=== PATIENT | male | born 1940 | race Caucasian/White ===

== ENCOUNTER 2018-09-05 19:06 | Inpatient (IN) ==
[2018-09-05] MEDS ORDERED: DIPH/TET/ACEL PERT BOOSTER VACCINE 0.5 ML VIAL IM ONE (19:18)
[2018-09-05] MEDS ORDERED: HYDROmorphone 2 MG/1 ML VIAL IV STA (19:18)
[2018-09-05] MEDS ORDERED: LACTATED RINGERS 500 ML IV STA (19:18)
[2018-09-05] MEDS ORDERED: ONDANSETRON 4 MG/2 ML VIAL IV STA (19:18)
[2018-09-05] MEDS ORDERED: HYDROmorphone 2 MG/1 ML VIAL IV ONE (20:25)
[2018-09-05 20:28] LABS: Basophils % 0.7 % (0.0-0.8); Eosinophils # 0.2 10*3/uL (0.0-0.87); Eosinophils % 3.9 % (0.00-10.9); Hematocrit 40.1 VOL% (42.0-52.0); Immature Granulocytes % 0.7 %; Immature Granulocytes Absolute 0.04 #; Lymphocytes # 0.9 10*3/uL (1.4-4.0); Lymphocytes % 16.3 % (21.2-54.2); Mean Corpuscular HGB Conc 32.4 GM/DL (32-36); Mean Platelet Volume 9.8 FL (9.6-12.0); Monocytes % 9.1 % (1.7-12.7); Neutrophils % 69.3 % (38.7-73.9); Platelet Count 126 T/CUMM (130-400); Red Blood Count 4.22 MC/CUMM (3.8-5.5); Red Cell Distribution Width 12.7 % (9.3-17.3); White Blood Count 5.7 T/CUMM (4-12)
[2018-09-05 20:48] LABS: Troponin I < 0.015 NG/ML (0.00-0.045)
[2018-09-05 20:50] LABS: Albumin 3.3 G/DL (3.4-5.0); Bilirubin,Total 0.4 MG/DL (0.2-1.0); Calcium 8.5 MG/DL (8.5-10.1); Osmolality,Calculated 280.4 MOS/KG (273-304)
[2018-09-05 21:50] LABS: Apearance,Urine CLEAR (Clear); Bilirubin,Urine Negative (Negative); Blood, Urine Moderate mg/dL (Negative); Glucose,Urine (UA) Negative (Negative); Ketones,Urine Negative (Negative); Mucus,Urine Occasional /LPF (Occasional); Nitrite,Urine Negative (Negative); Protein,Urine Negative; RBC,Urine 4 /HPF (0-4); Squamous Epithelial Cell,Urine Occasional /HPF (0-10); Urine Color Yellow (Yellow); Urine Specific Gravity 1.047 (1.001-1.035); Urine Urobilinogen < 2.0 EU/DL (0.2-1.0); WBC,Urine 2 /HPF (0-6)
[2018-09-05 21:54] LABS: Barbiturates Screen,Urine Negative (Negative); Benzodiazepines Screen,Urine Negative (Negative); Cannabinoid Screen,Urine Negative (Negative); Opiate Screen,Urine Positive (Negative); Phencyclidine Screen,Urine Negative (Negative)
[2018-09-05] MEDS ORDERED: ACETAMINOPHEN 325 MG TABLET PO PRN (23:16)
[2018-09-05] MEDS ORDERED: ONDANSETRON 4 MG/2 ML VIAL IV PRN (23:16)
[2018-09-05] MEDS: SODIUM CHLORIDE 0.9% 1,000 ML IV SCH (23:38)
[2018-09-06 00:14] LABS: Troponin I < 0.015 NG/ML (0.00-0.045)
[2018-09-06] MEDS: ALBUTEROL/IPRATROPIUM 3 ML NEB RESP TX SCH ×6 (00:33→21:40)
[2018-09-06] MEDS: HYDROmorphone 2 MG/1 ML VIAL IV PRN ×3 (00:52→12:44)
[2018-09-06] MEDS: ceFAZolin 1,000 MG in SYRINGE 1 EACH IV SCH ×3 (05:05→21:46)
[2018-09-06 05:12] LABS: Basophils % 0.3 % (0.0-0.8); Eosinophils % 0.3 % (0.00-10.9); Hematocrit 40.9 VOL% (42.0-52.0); Hemoglobin 12.9 GM/DL (14.0-18.0); Immature Granulocytes % 0.3 %; Immature Granulocytes Absolute 0.02 #; Lymphocytes # 0.4 10*3/uL (1.4-4.0); Lymphocytes % 5.6 % (21.2-54.2); Mean Corpuscular HGB Conc 31.5 GM/DL (32-36); Mean Corpuscular Volume 97.8 FL (87-102); Mean Platelet Volume 10.1 FL (9.6-12.0); Monocytes % 7.7 % (1.7-12.7); Neutrophils % 85.8 % (38.7-73.9); Platelet Count 116 T/CUMM (130-400); Red Blood Count 4.18 MC/CUMM (3.8-5.5); White Blood Count 7.5 T/CUMM (4-12)
[2018-09-06 05:36] LABS: Albumin 3.6 G/DL (3.4-5.0); Bilirubin,Total 0.8 MG/DL (0.2-1.0); Calcium 8.6 MG/DL (8.5-10.1); Osmolality,Calculated 288.1 MOS/KG (273-304); Total Protein 6.3 G/DL (6.4-8.3)
[2018-09-06] MEDS ORDERED: ALBUTEROL 2.5 MG/3 ML NEB RESP TX PRN (07:30)
[2018-09-06] MEDS ORDERED: fentaNYL 25 MCG/HR PATCH TRANSDERM SCH (09:00)
[2018-09-06] MEDS ORDERED: GABAPENTIN 300 MG CAPSULE PO SCH (09:00)
[2018-09-06] MEDS ORDERED: VALSARTAN/HCTZ 80-12.5 MG TABLET PO SCH (09:00)
[2018-09-06] MEDS: LEVOTHYROXINE 112 MCG TABLET PO SCH (10:02)
[2018-09-06] MEDS: ONDANSETRON ODT 4 MG TABLET PO SCH ×3 (10:02→18:28)
[2018-09-06] MEDS: PANTOPRAZOLE 40 MG TABLET PO SCH (10:03)
[2018-09-06] MEDS: POLYETHYLENE GLYCOL POWDER 17 GM PACK PO SCH (10:06)
[2018-09-06] MEDS: IPRATROPIUM 500 MCG/2.5 ML NEB RESP TX SCH ×2 (10:33→15:17)
[2018-09-06] MEDS: BACITRACIN OINT 0.9 GM PACK TOP SCH (12:46)
[2018-09-06] MEDS: SODIUM CHLORIDE 0.9% 1,000 ML IV SCH (12:47)
[2018-09-06] MEDS ORDERED: NALOXONE 0.4 MG/ML VIAL ONE (16:08)
[2018-09-06] MEDS: NALOXONE 0.4 MG/ML VIAL IV PRN ×2 (16:19→16:29)
[2018-09-06 16:42] LABS: ABG Base Excess 0.1 MMOL/L (-2.5-2.5); ABG HCO3 24.5 MMOL/L (20-26); ABG Oxygen Saturation 94.1 % (95-100); ABG PCO2 65.7 MM HG (35-48); ABG PH 7.256 (7.35-7.45); ABG PO2 72.8 MM HG (80-95); ABG TCO2 26.3 MMOL/L (23-27)
[2018-09-06 18:48] LABS: ABG HCO3 24.9 MMOL/L (20-26); ABG Oxygen Saturation 77.9 % (95-100); ABG PCO2 80.3 MM HG (35-48); ABG PO2 46.3 MM HG (80-95); ABG TCO2 29.2 MMOL/L (23-27)
[2018-09-06 18:50] LABS: ABG PH 7.208 (7.35-7.45)
[2018-09-06] MEDS ORDERED: traZODone 50 MG TABLET PO SCH (21:00)
[2018-09-06 21:44] LABS: Allen Test Positive; Pt O2 Delivery Device BIPAP
[2018-09-06 21:45] LABS: ABG Base Excess 1.3 MMOL/L (-2.5-2.5); ABG HCO3 25.4 MMOL/L (20-26); ABG Oxygen Saturation 93.7 % (95-100); ABG PH 7.242 (7.35-7.45); ABG PO2 73.7 MM HG (80-95); ABG TCO2 28.1 MMOL/L (23-27)
[2018-09-06] MEDS: ATORVASTATIN 40 MG TABLET PO SCH (21:46)
[2018-09-06 21:47] LABS: ABG PCO2 72.1 MM HG (35-48)
[2018-09-07] MEDS: ALBUTEROL/IPRATROPIUM 3 ML NEB RESP TX SCH ×7 (00:17→22:52)
[2018-09-07] MEDS: ONDANSETRON ODT 4 MG TABLET PO SCH ×4 (01:19→21:47)
[2018-09-07 03:16] LABS: ABG Base Excess 0.6 MMOL/L (-2.5-2.5); ABG HCO3 24.9 MMOL/L (20-26); ABG PH 7.219 (7.35-7.45); ABG PO2 86.6 MM HG (80-95); ABG TCO2 28.2 MMOL/L (23-27); Allen Test Positive; Pt O2 Delivery Device BIPAP
[2018-09-07 03:56] LABS: ABG PCO2 75.7 MM HG (35-48)
[2018-09-07 04:02] LABS: Basophils % 0.2 % (0.0-0.8); Eosinophils # 0.1 10*3/uL (0.0-0.87); Eosinophils % 0.8 % (0.00-10.9); Hematocrit 37.6 VOL% (42.0-52.0); Hemoglobin 11.3 GM/DL (14.0-18.0); Immature Granulocytes % 0.3 %; Immature Granulocytes Absolute 0.02 #; Lymphocytes # 0.6 10*3/uL (1.4-4.0); Mean Corpuscular HGB Conc 30.1 GM/DL (32-36); Mean Corpuscular Volume 102.7 FL (87-102); Mean Platelet Volume 10.3 FL (9.6-12.0); Monocytes % 13.3 % (1.7-12.7); Neutrophils % 75.4 % (38.7-73.9); Platelet Count 104 T/CUMM (130-400); Red Blood Count 3.66 MC/CUMM (3.8-5.5); Red Cell Distribution Width 13.5 % (9.3-17.3); White Blood Count 6.3 T/CUMM (4-12)
[2018-09-07 04:30] LABS: Albumin 3.4 G/DL (3.4-5.0); Bilirubin,Total 0.5 MG/DL (0.2-1.0); Osmolality,Calculated 285.4 MOS/KG (273-304); Total Protein 6.7 G/DL (6.4-8.3)
[2018-09-07 04:34] LABS: Hypochromasia 1+; Platelet Estimate Normal
[2018-09-07] MEDS: SODIUM CHLORIDE 0.9% 1,000 ML IV SCH ×2 (04:51→13:53)
[2018-09-07] MEDS: ceFAZolin 1,000 MG in SYRINGE 1 EACH IV SCH ×3 (05:09→21:47)
[2018-09-07] MEDS ORDERED: LACTATED RINGERS 1,000 ML IV ONE (06:55)
[2018-09-07] MEDS ORDERED: LORazepam 1 MG TABLET PO PRN (08:31)
[2018-09-07] MEDS: THIAMINE 100 MG TABLET PO SCH (09:07)
[2018-09-07] MEDS: PANTOPRAZOLE 40 MG TABLET PO SCH (09:08)
[2018-09-07] MEDS: BACITRACIN OINT 0.9 GM PACK TOP SCH (09:10)
[2018-09-07] MEDS: POLYETHYLENE GLYCOL POWDER 17 GM PACK PO SCH (09:10)
[2018-09-07] MEDS: LEVOTHYROXINE 112 MCG TABLET PO SCH (09:10)
[2018-09-07] MEDS: MULTIVITAMIN (CENTRUM) TABLET PO SCH (09:10)
[2018-09-07] MEDS: FOLIC ACID 1 MG TABLET PO SCH (09:10)
[2018-09-07] MEDS: methylPREDNISolone SOD SUC 40 MG/1 ML VIAL IV SCH ×2 (10:38→17:18)
[2018-09-07 14:30] LABS: Calcium 7.8 MG/DL (8.5-10.1); Osmolality,Calculated 287.5 MOS/KG (273-304)
[2018-09-07] MEDS: ATORVASTATIN 40 MG TABLET PO SCH (21:47)
[2018-09-08] MEDS: ONDANSETRON ODT 4 MG TABLET PO SCH ×4 (01:10→20:09)
[2018-09-08] MEDS: SODIUM CHLORIDE 0.9% 1,000 ML IV SCH ×2 (01:11→21:42)
[2018-09-08] MEDS: ALBUTEROL/IPRATROPIUM 3 ML NEB RESP TX SCH ×6 (02:42→23:30)
[2018-09-08] MEDS: methylPREDNISolone SOD SUC 40 MG/1 ML VIAL IV SCH ×3 (02:51→17:27)
[2018-09-08 03:32] LABS: ABG Base Excess 1.4 MMOL/L (-2.5-2.5); ABG HCO3 25.6 MMOL/L (20-26); ABG Oxygen Saturation 96.3 % (95-100); ABG PCO2 62.2 MM HG (35-48); ABG PH 7.287 (7.35-7.45); ABG PO2 83.7 MM HG (80-95); ABG TCO2 26.8 MMOL/L (23-27); Allen Test Positive; Pt O2 Delivery Device BIPAP
[2018-09-08] MEDS: ceFAZolin 1,000 MG in SYRINGE 1 EACH IV SCH ×3 (05:10→20:10)
[2018-09-08 06:16] LABS: Hematocrit 34.5 VOL% (42.0-52.0); Hemoglobin 11.2 GM/DL (14.0-18.0); Immature Granulocytes % 0.7 %; Immature Granulocytes Absolute 0.04 #; Lymphocytes # 0.3 10*3/uL (1.4-4.0); Lymphocytes % 4.7 % (21.2-54.2); Mean Corpuscular HGB Conc 32.5 GM/DL (32-36); Mean Corpuscular Volume 96.6 FL (87-102); Mean Platelet Volume 9.7 FL (9.6-12.0); Monocytes % 3.9 % (1.7-12.7); Neutrophils % 90.7 % (38.7-73.9); Platelet Count 94 T/CUMM (130-400); Red Blood Count 3.57 MC/CUMM (3.8-5.5); Red Cell Distribution Width 12.7 % (9.3-17.3); White Blood Count 5.4 T/CUMM (4-12)
[2018-09-08 06:36] LABS: Hypochromasia 1+; Lymphocytes 4 % (20-55); Platelet Estimate Decreased; Segmented Neutrophils 93 % (50-85); Total Cells Counted 100
[2018-09-08 06:57] LABS: Calcium 8.1 MG/DL (8.5-10.1); Osmolality,Calculated 286.5 MOS/KG (273-304)
[2018-09-08] MEDS: THIAMINE 100 MG TABLET PO SCH (08:07)
[2018-09-08] MEDS: FOLIC ACID 1 MG TABLET PO SCH (08:07)
[2018-09-08] MEDS: BACITRACIN OINT 0.9 GM PACK TOP SCH (08:07)
[2018-09-08] MEDS: LEVOTHYROXINE 112 MCG TABLET PO SCH (08:07)
[2018-09-08] MEDS: PANTOPRAZOLE 40 MG TABLET PO SCH (08:07)
[2018-09-08] MEDS: MULTIVITAMIN (CENTRUM) TABLET PO SCH (08:08)
[2018-09-08] MEDS: POLYETHYLENE GLYCOL POWDER 17 GM PACK PO SCH (08:08)
[2018-09-08] MEDS: amLODIPine 2.5 MG TABLET PO SCH (11:56)
[2018-09-08] MEDS: ENOXAPARIN 40 MG/0.4 ML SYRINGE SUBCUT SCH (20:10)
[2018-09-08] MEDS: ATORVASTATIN 40 MG TABLET PO SCH (20:10)
[2018-09-09] MEDS: ONDANSETRON ODT 4 MG TABLET PO SCH ×4 (00:50→20:17)
[2018-09-09] MEDS: methylPREDNISolone SOD SUC 40 MG/1 ML VIAL IV SCH ×2 (01:35→12:03)
[2018-09-09] MEDS ORDERED: chlordiazePOXIDE 25 MG CAPSULE PO PRN (01:49)
[2018-09-09] MEDS: ALBUTEROL/IPRATROPIUM 3 ML NEB RESP TX SCH ×6 (02:30→23:20)
[2018-09-09] MEDS ORDERED: LABETALOL 20 MG/4 ML SYRINGE IV ONE (03:35)
[2018-09-09] MEDS: ceFAZolin 1,000 MG in SYRINGE 1 EACH IV SCH ×3 (04:01→20:14)
[2018-09-09] MEDS: MULTIVITAMIN (CENTRUM) TABLET PO SCH (08:37)
[2018-09-09] MEDS: FOLIC ACID 1 MG TABLET PO SCH (08:37)
[2018-09-09] MEDS: BACITRACIN OINT 0.9 GM PACK TOP SCH (08:37)
[2018-09-09] MEDS: POLYETHYLENE GLYCOL POWDER 17 GM PACK PO SCH (08:37)
[2018-09-09] MEDS: amLODIPine 2.5 MG TABLET PO SCH (08:37)
[2018-09-09] MEDS: LEVOTHYROXINE 112 MCG TABLET PO SCH (08:38)
[2018-09-09] MEDS: PANTOPRAZOLE 40 MG TABLET PO SCH (08:38)
[2018-09-09] MEDS: THIAMINE 100 MG TABLET PO SCH (08:38)
[2018-09-09] MEDS: IPRATROPIUM 500 MCG/2.5 ML NEB RESP TX SCH (08:46)
[2018-09-09] MEDS: LORazepam 2 MG/1 ML VIAL IV PRN (12:39)
[2018-09-09] MEDS ORDERED: DILTIAZEM 50 MG/10 ML VIAL IV ONE (13:22)
[2018-09-09] MEDS: chlordiazePOXIDE 10 MG CAPSULE PO SCH ×2 (14:51→20:26)
[2018-09-09] MEDS ORDERED: PROPRANOLOL 10 MG TABLET PO SCH (15:00)
[2018-09-09] MEDS ORDERED: PROPRANOLOL 10 MG TABLET PO ONE (15:23)
[2018-09-09] MEDS: ATORVASTATIN 40 MG TABLET PO SCH (20:16)
[2018-09-09] MEDS: PROPRANOLOL 10 MG TABLET PO SCH (20:16)
[2018-09-09] MEDS: ENOXAPARIN 40 MG/0.4 ML SYRINGE SUBCUT SCH (20:20)
[2018-09-10] MEDS ORDERED: hydrALAZINE 20 MG/1 ML VIAL IV ONE (00:30)
[2018-09-10] MEDS: ONDANSETRON ODT 4 MG TABLET PO SCH ×4 (00:36→20:30)
[2018-09-10] MEDS: LORazepam 2 MG/1 ML VIAL IV PRN (01:18)
[2018-09-10] MEDS: chlordiazePOXIDE 25 MG CAPSULE PO SCH ×2 (02:25→09:14)
[2018-09-10] MEDS ORDERED: LORazepam 2 MG/1 ML VIAL IV ONE ×2 (02:53→04:38)
[2018-09-10 02:55] LABS: Apearance,Urine CLEAR (Clear); Bilirubin,Urine Negative (Negative); Blood, Urine Large mg/dL (Negative); Glucose,Urine (UA) Negative (Negative); Hyaline Casts,Urine 3 /LPF (0-3); Ketones,Urine Negative (Negative); Mucus,Urine Occasional /LPF (Occasional); Nitrite,Urine Negative (Negative); Protein,Urine 30 MG/DL; RBC,Urine 491 /HPF (0-4); Squamous Epithelial Cell,Urine Few /HPF (0-10); Urine Color Yellow (Yellow); Urine Specific Gravity 1.026 (1.001-1.035); WBC,Urine 9 /HPF (0-6)
[2018-09-10] MEDS: ALBUTEROL/IPRATROPIUM 3 ML NEB RESP TX SCH ×6 (03:07→23:05)
[2018-09-10] MEDS: ceFAZolin 1,000 MG in SYRINGE 1 EACH IV SCH (04:24)
[2018-09-10] MEDS ORDERED: LORazepam 2 MG/1 ML VIAL ONE ×2 (04:40→06:45)
[2018-09-10] MEDS ORDERED: LORazepam 2 MG/1 ML VIAL IV PRN (04:43)
[2018-09-10 06:23] LABS: ABG HCO3 28.9 MMOL/L (20-26); ABG Oxygen Saturation 94.1 % (95-100); ABG PCO2 46.4 MM HG (35-48); ABG PH 7.423 (7.35-7.45); ABG PO2 69.5 MM HG (80-95); ABG TCO2 26.8 MMOL/L (23-27); Allen Test Positive
[2018-09-10 07:34] LABS: Hematocrit 35.7 VOL% (42.0-52.0); Hemoglobin 11.8 GM/DL (14.0-18.0); Immature Granulocytes % 0.6 %; Immature Granulocytes Absolute 0.05 #; Lymphocytes # 0.6 10*3/uL (1.4-4.0); Lymphocytes % 6.8 % (21.2-54.2); Mean Corpuscular HGB Conc 33.1 GM/DL (32-36); Mean Corpuscular Volume 95.2 FL (87-102); Mean Platelet Volume 9.8 FL (9.6-12.0); Monocytes % 9.2 % (1.7-12.7); Neutrophils % 83.4 % (38.7-73.9); Platelet Count 125 T/CUMM (130-400); Red Blood Count 3.75 MC/CUMM (3.8-5.5); Red Cell Distribution Width 13.1 % (9.3-17.3); White Blood Count 8.7 T/CUMM (4-12)
[2018-09-10 08:01] LABS: Osmolality,Calculated 289.4 MOS/KG (273-304)
[2018-09-10] MEDS ORDERED: chlordiazePOXIDE 10 MG CAPSULE PO SCH (12:00)
[2018-09-10] MEDS: LEVOTHYROXINE 112 MCG TABLET PO SCH (13:37)
[2018-09-10] MEDS: BACITRACIN OINT 0.9 GM PACK TOP SCH (13:37)
[2018-09-10] MEDS: POLYETHYLENE GLYCOL POWDER 17 GM PACK PO SCH (13:37)
[2018-09-10] MEDS: PROPRANOLOL 10 MG TABLET PO SCH ×3 (13:37→20:30)
[2018-09-10] MEDS: amLODIPine 2.5 MG TABLET PO SCH (17:22)
[2018-09-10] MEDS: MULTIVITAMIN (CENTRUM) TABLET PO SCH (17:22)
[2018-09-10] MEDS: FOLIC ACID 1 MG TABLET PO SCH (17:22)
[2018-09-10] MEDS: predniSONE 20 MG TABLET PO SCH (17:23)
[2018-09-10] MEDS: PANTOPRAZOLE 40 MG TABLET PO SCH (17:23)
[2018-09-10] MEDS: THIAMINE 100 MG TABLET PO SCH (17:23)
[2018-09-10] MEDS: ENOXAPARIN 40 MG/0.4 ML SYRINGE SUBCUT SCH (20:30)
[2018-09-10] MEDS: ATORVASTATIN 40 MG TABLET PO SCH (20:30)
[2018-09-10] MEDS: HALOPERIDOL 5 MG/ML AMP IM PRN (21:57)
[2018-09-11] MEDS: ONDANSETRON ODT 4 MG TABLET PO SCH ×4 (00:24→21:29)
[2018-09-11] MEDS: ALBUTEROL/IPRATROPIUM 3 ML NEB RESP TX SCH ×6 (03:15→22:39)
[2018-09-11 03:39] LABS: Eosinophils # 0.1 10*3/uL (0.0-0.87); Eosinophils % 1.5 % (0.00-10.9); Hematocrit 35.1 VOL% (42.0-52.0); Hemoglobin 11.3 GM/DL (14.0-18.0); Immature Granulocytes % 0.8 %; Immature Granulocytes Absolute 0.04 #; Lymphocytes # 0.5 10*3/uL (1.4-4.0); Lymphocytes % 10.3 % (21.2-54.2); Mean Corpuscular HGB Conc 32.2 GM/DL (32-36); Mean Corpuscular Volume 96.2 FL (87-102); Mean Platelet Volume 9.9 FL (9.6-12.0); Monocytes % 10.1 % (1.7-12.7); Neutrophils % 77.3 % (38.7-73.9); Platelet Count 122 T/CUMM (130-400); Red Blood Count 3.65 MC/CUMM (3.8-5.5); Red Cell Distribution Width 12.8 % (9.3-17.3); White Blood Count 5.2 T/CUMM (4-12)
[2018-09-11 03:59] LABS: Calcium 7.9 MG/DL (8.5-10.1); Osmolality,Calculated 288.3 MOS/KG (273-304)
[2018-09-11] MEDS: PROPRANOLOL 10 MG TABLET PO SCH (08:31)
[2018-09-11] MEDS: amLODIPine 2.5 MG TABLET PO SCH (08:51)
[2018-09-11] MEDS: LEVOTHYROXINE 112 MCG TABLET PO SCH (08:51)
[2018-09-11] MEDS: PANTOPRAZOLE 40 MG TABLET PO SCH (08:51)
[2018-09-11] MEDS: FOLIC ACID 1 MG TABLET PO SCH (08:51)
[2018-09-11] MEDS: POLYETHYLENE GLYCOL POWDER 17 GM PACK PO SCH (08:52)
[2018-09-11] MEDS: MULTIVITAMIN (CENTRUM) TABLET PO SCH (08:52)
[2018-09-11] MEDS: BACITRACIN OINT 0.9 GM PACK TOP SCH (08:52)
[2018-09-11] MEDS: THIAMINE 100 MG TABLET PO SCH (08:52)
[2018-09-11] MEDS: predniSONE 20 MG TABLET PO SCH (08:52)
[2018-09-11] MEDS: hydrALAZINE 20 MG/1 ML VIAL IV PRN (17:53)
[2018-09-11] MEDS: ATORVASTATIN 40 MG TABLET PO SCH (21:29)
[2018-09-11] MEDS: ENOXAPARIN 40 MG/0.4 ML SYRINGE SUBCUT SCH (21:33)
[2018-09-11] MEDS: HALOPERIDOL 5 MG/ML AMP IM PRN (23:18)
[2018-09-12] MEDS: HYDROmorphone 2 MG/1 ML VIAL IV PRN ×3 (01:27→12:01)
[2018-09-12] MEDS: ALBUTEROL/IPRATROPIUM 3 ML NEB RESP TX SCH ×3 (02:28→11:55)
[2018-09-12] MEDS: ONDANSETRON ODT 4 MG TABLET PO SCH ×2 (03:06→09:05)
[2018-09-12 04:36] LABS: Basophils % 0.2 % (0.0-0.8); Eosinophils # 0.1 10*3/uL (0.0-0.87); Eosinophils % 0.8 % (0.00-10.9); Hematocrit 36.3 VOL% (42.0-52.0); Hemoglobin 11.8 GM/DL (14.0-18.0); Immature Granulocytes % 0.5 %; Immature Granulocytes Absolute 0.03 #; Lymphocytes # 0.6 10*3/uL (1.4-4.0); Mean Corpuscular HGB Conc 32.5 GM/DL (32-36); Mean Corpuscular Volume 94.3 FL (87-102); Mean Platelet Volume 9.9 FL (9.6-12.0); Monocytes % 8.8 % (1.7-12.7); Neutrophils % 80.7 % (38.7-73.9); Platelet Count 136 T/CUMM (130-400); Red Blood Count 3.85 MC/CUMM (3.8-5.5); Red Cell Distribution Width 12.6 % (9.3-17.3); White Blood Count 6.4 T/CUMM (4-12)
[2018-09-12 05:02] LABS: Calcium 8.3 MG/DL (8.5-10.1); Osmolality,Calculated 289.3 MOS/KG (273-304)
[2018-09-12] MEDS: MULTIVITAMIN (CENTRUM) TABLET PO SCH (09:04)
[2018-09-12] MEDS: FOLIC ACID 1 MG TABLET PO SCH (09:04)
[2018-09-12] MEDS: predniSONE 20 MG TABLET PO SCH (09:04)
[2018-09-12] MEDS: LEVOTHYROXINE 112 MCG TABLET PO SCH (09:04)
[2018-09-12] MEDS: THIAMINE 100 MG TABLET PO SCH (09:04)
[2018-09-12] MEDS: PANTOPRAZOLE 40 MG TABLET PO SCH (09:04)
[2018-09-12] MEDS: BACITRACIN OINT 0.9 GM PACK TOP SCH (09:05)
[2018-09-12] MEDS: POLYETHYLENE GLYCOL POWDER 17 GM PACK PO SCH (09:05)
[2018-09-12] MEDS: amLODIPine 2.5 MG TABLET PO SCH (09:05)
[2018-09-12 11:48] VITALS: BP 160/115
[2018-09-12] MEDS: hydrALAZINE 20 MG/1 ML VIAL IV PRN (12:02)
== END 2018-09-12 13:47 | disposition home or self-care (01) | DRG 564 ==
LOC: EDBD → EDUNIT# → N.ED 19:06 → N.EDINP 21:51 → OBSVTOIN 21:51 → INTOOBSV 21:51 → N.3E 22:43 → N.CC 09-06 20:42 → N.5E 09-09 01:24 → N.CC 09-09 01:47 → N.2E 09-11 11:49
PROVIDERS: ADMIT Surgery; ATTEND Surgery

== ENCOUNTER 2020-01-10 18:10 | Inpatient (IN) ==
[2020-01-10 18:43] LABS: Eosinophils # 0.1 10*3/uL (0.0-0.87); Eosinophils % 1.7 % (0.00-10.9); Hemoglobin 11.3 GM/DL (14.0-18.0); Lymphocytes # 0.5 10*3/uL (1.4-4.0); Lymphocytes % 17.5 % (21.2-54.2); Mean Corpuscular HGB Conc 33.2 GM/DL (32-36); Mean Platelet Volume 9.9 FL (9.6-12.0); Monocytes % 17.1 % (1.7-12.7); Neutrophils % 62.7 % (38.7-73.9); Platelet Count 119 T/CUMM (130-400); Red Blood Count 3.58 MC/CUMM (3.8-5.5); Red Cell Distribution Width 15.1 % (9.3-17.3); White Blood Count 2.9 T/CUMM (4-12)
[2020-01-10] MEDS ORDERED: SODIUM CHLORIDE 0.9% 1,000 ML IV STA (18:57)
[2020-01-10 19:10] LABS: Albumin 3.5 G/DL (3.4-5.0); Bilirubin,Total 0.6 MG/DL (0.2-1.0); Osmolality,Calculated 291.1 MOS/KG (273-304); Total Protein 6.1 G/DL (6.4-8.3)
[2020-01-10] MEDS ORDERED: ASPIRIN EC 325 MG TABLET PO STA (19:52)
[2020-01-10 20:15] LABS: Bilirubin,Urine Negative (Negative); Blood, Urine Moderate mg/dL (Negative); Glucose,Urine (UA) Negative (Negative); Hyaline Casts,Urine 60 /LPF (0-3); Ketones,Urine 5 mg/dL (Negative); Nitrite,Urine Negative (Negative); Protein,Urine 30 MG/DL; RBC,Urine 2 /HPF (0-4); Squamous Epithelial Cell,Urine Occasional /HPF (0-10); Urine Appearance CLEAR (Clear); Urine Color Yellow (Yellow); Urine Specific Gravity 1.017 (1.001-1.035); WBC,Urine 2 /HPF (0-6)
[2020-01-10] MEDS ORDERED: HYDROmorphone 2 MG/1 ML VIAL ONE (20:29)
[2020-01-10] MEDS ORDERED: HYDROmorphone 2 MG/1 ML VIAL IV STA (20:31)
[2020-01-10 20:36] LABS: Band Neutrophils 4 % (0-10); Eosinophils 2 % (0-10); Lymphocytes 18 % (20-55); Platelet Estimate Decreased; Segmented Neutrophils 59 % (50-85); Total Cells Counted 100
[2020-01-10 20:37] LABS: Anisocytosis 1+; Hypochromasia 2+; Macrocytosis 1+
[2020-01-10] MEDS ORDERED: ONDANSETRON 4 MG/2 ML VIAL IV PRN (21:44)
[2020-01-10] MEDS ORDERED: DOCUSATE SODIUM 100 MG CAPSULE PO PRN (21:44)
[2020-01-10] MEDS: MORPHINE ER 15 MG TABLET PO SCH (22:56)
[2020-01-10] MEDS: GABAPENTIN 300 MG CAPSULE PO SCH (22:56)
[2020-01-10] MEDS: traZODone 50 MG TABLET PO SCH (22:56)
[2020-01-10] MEDS: fentaNYL 12 MCG/HR PATCH TRANSDERM SCH (22:57)
[2020-01-10] MEDS: SODIUM CHLORIDE 0.9% 1,000 ML IV SCH (23:00)
[2020-01-11 01:23] LABS: Basophils % 0.6 % (0.0-0.8); Eosinophils # 0.1 10*3/uL (0.0-0.87); Eosinophils % 1.5 % (0.00-10.9); Hematocrit 29.4 VOL% (42.0-52.0); Hemoglobin 9.8 GM/DL (14.0-18.0); Immature Granulocytes % 0.3 %; Immature Granulocytes Absolute 0.01 #; Lymphocytes # 0.5 10*3/uL (1.4-4.0); Lymphocytes % 15.1 % (21.2-54.2); Mean Corpuscular HGB Conc 33.3 GM/DL (32-36); Mean Corpuscular Volume 93.6 FL (87-102); Mean Platelet Volume 10.1 FL (9.6-12.0); Monocytes % 18.8 % (1.7-12.7); Neutrophils % 63.7 % (38.7-73.9); Platelet Count 102 T/CUMM (130-400); Red Blood Count 3.14 MC/CUMM (3.8-5.5); Red Cell Distribution Width 15.3 % (9.3-17.3); White Blood Count 3.3 T/CUMM (4-12)
[2020-01-11 02:14] LABS: Calcium 8.5 MG/DL (8.5-10.1)
[2020-01-11 04:26] LABS: Eosinophils 1 % (0-10); Lymphocytes 19 % (20-55); Segmented Neutrophils 68 % (50-85); Total Cells Counted 100
[2020-01-11 04:27] LABS: Hypochromasia 1+; Ovalocytes Slight; Platelet Estimate Decreased
[2020-01-11 04:28] LABS: Macrocytosis Slight
[2020-01-11] MEDS: LEVOTHYROXINE 112 MCG TABLET PO SCH (06:19)
[2020-01-11] MEDS ORDERED: GABAPENTIN 300 MG CAPSULE PO SCH (09:00)
[2020-01-11] MEDS: POLYETHYLENE GLYCOL POWDER 17 GM PACK PO SCH (09:05)
[2020-01-11] MEDS: PARoxetine 20 MG TABLET PO SCH (09:05)
[2020-01-11] MEDS: SODIUM CHLORIDE 0.9% 1,000 ML IV SCH ×2 (13:54→20:29)
[2020-01-11] MEDS: GABAPENTIN 300 MG CAPSULE PO SCH (20:27)
[2020-01-11] MEDS: ATORVASTATIN 40 MG TABLET PO SCH (20:28)
[2020-01-11] MEDS: traZODone 50 MG TABLET PO SCH (20:28)
[2020-01-11] MEDS: MORPHINE ER 15 MG TABLET PO SCH (20:28)
[2020-01-12 04:09] LABS: Basophils % 0.5 % (0.0-0.8); Eosinophils % 2.2 % (0.00-10.9); Hematocrit 29.6 VOL% (42.0-52.0); Hemoglobin 9.7 GM/DL (14.0-18.0); Immature Granulocytes % 0.5 %; Immature Granulocytes Absolute 0.01 #; Lymphocytes # 0.5 10*3/uL (1.4-4.0); Lymphocytes % 25.3 % (21.2-54.2); Mean Corpuscular HGB Conc 32.8 GM/DL (32-36); Mean Corpuscular Volume 95.2 FL (87-102); Mean Platelet Volume 10.2 FL (9.6-12.0); Monocytes % 18.7 % (1.7-12.7); Neutrophils % 52.8 % (38.7-73.9); Platelet Count 89 T/CUMM (130-400); Red Blood Count 3.11 MC/CUMM (3.8-5.5); Red Cell Distribution Width 15.5 % (9.3-17.3); White Blood Count 1.8 T/CUMM (4-12)
[2020-01-12 04:27] LABS: Calcium 7.9 MG/DL (8.5-10.1); Osmolality,Calculated 291.8 MOS/KG (273-304)
[2020-01-12] MEDS: ACETAMINOPHEN 325 MG TABLET PO PRN (05:36)
[2020-01-12] MEDS: SODIUM CHLORIDE 0.9% 1,000 ML IV SCH ×3 (05:36→16:15)
[2020-01-12] MEDS: LEVOTHYROXINE 112 MCG TABLET PO SCH (05:36)
[2020-01-12 06:33] LABS: Eosinophils 2 % (0-10); Lymphocytes 28 % (20-55); Platelet Estimate Decreased; Segmented Neutrophils 56 % (50-85); Total Cells Counted 100
[2020-01-12 06:34] LABS: Anisocytosis 2+; Spherocytes Few
[2020-01-12] MEDS: POLYETHYLENE GLYCOL POWDER 17 GM PACK PO SCH (09:20)
[2020-01-12] MEDS: PARoxetine 20 MG TABLET PO SCH (09:20)
[2020-01-12] MEDS: GABAPENTIN 300 MG CAPSULE PO SCH (21:10)
[2020-01-12] MEDS: traZODone 50 MG TABLET PO SCH (21:11)
[2020-01-12] MEDS: MORPHINE ER 15 MG TABLET PO SCH (21:11)
[2020-01-12] MEDS: ATORVASTATIN 40 MG TABLET PO SCH (21:11)
[2020-01-13] MEDS: SODIUM CHLORIDE 0.9% 1,000 ML IV SCH (02:19)
[2020-01-13] MEDS: ACETAMINOPHEN 325 MG TABLET PO PRN (02:20)
[2020-01-13] MEDS: LEVOTHYROXINE 112 MCG TABLET PO SCH (05:14)
[2020-01-13 06:35] LABS: Basophils % 0.9 % (0.0-0.8); Eosinophils # 0.1 10*3/uL (0.0-0.87); Eosinophils % 2.3 % (0.00-10.9); Hematocrit 30.1 VOL% (42.0-52.0); Hemoglobin 9.6 GM/DL (14.0-18.0); Immature Granulocytes % 0.5 %; Immature Granulocytes Absolute 0.01 #; Lymphocytes # 0.6 10*3/uL (1.4-4.0); Lymphocytes % 29.1 % (21.2-54.2); Mean Corpuscular HGB Conc 31.9 GM/DL (32-36); Mean Platelet Volume 10.6 FL (9.6-12.0); Monocytes % 18.6 % (1.7-12.7); Neutrophils % 48.6 % (38.7-73.9); Platelet Count 86 T/CUMM (130-400); Red Blood Count 3.04 MC/CUMM (3.8-5.5); Red Cell Distribution Width 15.8 % (9.3-17.3); White Blood Count 2.2 T/CUMM (4-12)
[2020-01-13 06:52] LABS: Calcium 8.2 MG/DL (8.5-10.1); Osmolality,Calculated 286.8 MOS/KG (273-304)
[2020-01-13 06:58] LABS: % Iron Saturation 36.9 % (18-50); Ferritin 296.2 ng/ml (26-388)
[2020-01-13 07:07] LABS: Folate 7.6 NG/ML (5.4-24.0)
[2020-01-13 08:14] LABS: Band Neutrophils 4 % (0-10); Eosinophils 1 % (0-10); Lymphocytes 26 % (20-55); Nucleated Red Blood Cells 1 (0-5); Platelet Estimate Decreased; Segmented Neutrophils 52 % (50-85); Total Cells Counted 100
[2020-01-13 08:15] LABS: Anisocytosis Slight
[2020-01-13] MEDS: POLYETHYLENE GLYCOL POWDER 17 GM PACK PO SCH (08:42)
[2020-01-13] MEDS: PARoxetine 20 MG TABLET PO SCH (08:43)
[2020-01-13] MEDS: ATORVASTATIN 40 MG TABLET PO SCH (21:02)
[2020-01-13] MEDS: GABAPENTIN 300 MG CAPSULE PO SCH (21:03)
[2020-01-13] MEDS: MORPHINE ER 15 MG TABLET PO SCH (21:03)
[2020-01-13] MEDS: traZODone 50 MG TABLET PO SCH (21:03)
[2020-01-13] MEDS: fentaNYL 12 MCG/HR PATCH TRANSDERM SCH (23:45)
[2020-01-14 04:28] LABS: Basophils % 1.5 % (0.0-0.8); Eosinophils # 0.1 10*3/uL (0.0-0.87); Eosinophils % 2.9 % (0.00-10.9); Hematocrit 27.6 VOL% (42.0-52.0); Hemoglobin 9.1 GM/DL (14.0-18.0); Immature Granulocytes % 0.5 %; Immature Granulocytes Absolute 0.01 #; Lymphocytes # 0.5 10*3/uL (1.4-4.0); Lymphocytes % 23.4 % (21.2-54.2); Mean Corpuscular Volume 95.2 FL (87-102); Mean Platelet Volume 10.6 FL (9.6-12.0); Monocytes % 19.5 % (1.7-12.7); Neutrophils % 52.2 % (38.7-73.9); Platelet Count 88 T/CUMM (130-400); Red Cell Distribution Width 15.6 % (9.3-17.3); White Blood Count 2.1 T/CUMM (4-12)
[2020-01-14 04:51] LABS: Eosinophils 2 % (0-10); Hypochromasia 1+; Lymphocytes 17 % (20-55); Platelet Estimate Decreased; Segmented Neutrophils 65 % (50-85); Total Cells Counted 100
[2020-01-14 04:52] LABS: Microcytosis Slight
[2020-01-14 04:58] LABS: Calcium 8.3 MG/DL (8.5-10.1); Osmolality,Calculated 286.8 MOS/KG (273-304)
[2020-01-14] MEDS: ACETAMINOPHEN 325 MG TABLET PO PRN (05:17)
[2020-01-14] MEDS: LEVOTHYROXINE 112 MCG TABLET PO SCH (05:17)
[2020-01-14] MEDS: PARoxetine 20 MG TABLET PO SCH (09:03)
[2020-01-14] MEDS: POLYETHYLENE GLYCOL POWDER 17 GM PACK PO SCH (09:04)
[2020-01-14 11:11] VITALS: BP 114/74
== END 2020-01-14 14:57 | disposition home or self-care (01) | DRG 682 ==
LOC: EDBD → EDUNIT# → N.ED 18:10 → N.EDINP 18:10 → N.4E 22:02 → SUATTDRO 01-11 14:37
PROVIDERS: ADMIT Internal Medicine; ATTEND Internal Medicine Geriatric Medicine

== ENCOUNTER 2020-05-02 05:54 | Inpatient (IN) ==
[2020-05-02] MEDS ORDERED: MORPHINE 10 MG/1 ML VIAL IM STA (06:25)
[2020-05-02] MEDS ORDERED: ONDANSETRON 4 MG/2 ML VIAL IM STA (06:25)
[2020-05-02] MEDS ORDERED: ONDANSETRON 4 MG/2 ML VIAL ONE (06:27)
[2020-05-02] MEDS ORDERED: MORPHINE 4 MG/1 ML VIAL ONE (06:28)
[2020-05-02 06:45] LABS: Albumin 3.1 G/DL (3.4-5.0); Bilirubin,Total 0.6 MG/DL (0.2-1.0); Calcium 8.1 MG/DL (8.5-10.1); Osmolality,Calculated 285.5 MOS/KG (273-304); Total Protein 6.9 G/DL (6.4-8.3)
[2020-05-02 06:47] LABS: Eosinophils % 0.2 % (0.00-10.9); Hematocrit 40.4 VOL% (42.0-52.0); Hemoglobin 13.7 GM/DL (14.0-18.0); Immature Granulocytes % 0.2 %; Immature Granulocytes Absolute 0.01 #; Lymphocytes # 0.5 10*3/uL (1.4-4.0); Lymphocytes % 12.4 % (21.2-54.2); Mean Corpuscular HGB Conc 33.9 GM/DL (32-36); Mean Corpuscular Volume 93.1 FL (87-102); Mean Platelet Volume 10.2 FL (9.6-12.0); Monocytes % 8.3 % (1.7-12.7); Neutrophils % 78.9 % (38.7-73.9); Platelet Count 173 T/CUMM (130-400); Red Blood Count 4.34 MC/CUMM (3.8-5.5); Red Cell Distribution Width 12.6 % (9.3-17.3); White Blood Count 4.1 T/CUMM (4-12)
[2020-05-02 07:41] LABS: ABG Base Excess 2.6 MMOL/L (-2.5-2.5); ABG HCO3 26.6 MMOL/L (20-26); ABG Oxygen Saturation 92.9 % (95-100); ABG PCO2 48.9 MM HG (35-48); ABG PH 7.377 (7.35-7.45); ABG PO2 73.4 MM HG (80-95); ABG TCO2 25.1 MMOL/L (23-27)
[2020-05-02] MEDS ORDERED: cefTRIAXone 1,000 MG in SODIUM CHLORIDE 0.9% 100 ML IV STA (07:45)
[2020-05-02] MEDS ORDERED: cefTRIAXone 1,000 MG VIAL ONE (07:46)
[2020-05-02] MEDS ORDERED: DEXTROSE 50% 25 GM/50 ML VIAL IV PRN (08:24)
[2020-05-02] MEDS ORDERED: ONDANSETRON 4 MG/2 ML VIAL IV PRN (08:24)
[2020-05-02] MEDS ORDERED: DOCUSATE SODIUM 100 MG CAPSULE PO PRN (08:24)
[2020-05-02] MEDS ORDERED: GLUCAGON 1 MG VIAL IM PRN (08:24)
[2020-05-02] MEDS ORDERED: AZITHROMYCIN INJ 500 MG in SODIUM CHLORIDE 0.9% 250 ML IV ONE (08:33)
[2020-05-02 08:50] LABS: Ovalocytes Few
[2020-05-02 08:51] LABS: Platelet Estimate Adequate; Polychromasia Slight
[2020-05-02] MEDS ORDERED: ALBUTEROL INHALER 18 GM INH PRN (09:08)
[2020-05-02 09:23] LABS: Ferritin 819.7 ng/ml (26-388)
[2020-05-02] MEDS: CHOLECALCIFEROL 1,000 UNIT TABLET PO SCH (11:45)
[2020-05-02] MEDS: CETIRIZINE 10 MG TABLET PO SCH (11:45)
[2020-05-02] MEDS: ENOXAPARIN 40 MG/0.4 ML SYRINGE SUBCUT SCH (11:45)
[2020-05-02] MEDS: PANTOPRAZOLE 40 MG TABLET PO SCH (11:45)
[2020-05-02] MEDS: DEXAMETHASONE 4 MG/1 ML VIAL IV SCH (11:45)
[2020-05-02] MEDS: ZINC GLUCONATE 50 MG TABLET PO SCH (11:45)
[2020-05-02] MEDS: SODIUM CHLORIDE 0.9% 1,000 ML IV SCH (11:45)
[2020-05-02] MEDS: ASCORBIC ACID 500 MG TABLET PO SCH ×2 (11:45→20:49)
[2020-05-02] MEDS ORDERED: fentaNYL 12 MCG/HR PATCH TRANSDERM SCH (12:00)
[2020-05-02] MEDS ORDERED: REMDESIVIR 200 MG in SODIUM CHLORIDE 0.9% 210 ML IV ONE (14:00)
[2020-05-02] MEDS ORDERED: SODIUM CHLORIDE 0.9% 1,000 ML IV PRN (15:03)
[2020-05-02] MEDS: CYCLOBENZAPRINE 10 MG TABLET PO SCH ×2 (15:07→20:49)
[2020-05-02] MEDS: fentaNYL 25 MCG/HR PATCH TRANSDERM SCH (16:44)
[2020-05-02] MEDS: ATORVASTATIN 40 MG TABLET PO SCH (20:49)
[2020-05-02] MEDS: traZODone 50 MG TABLET PO SCH (20:49)
[2020-05-03] MEDS: SODIUM CHLORIDE 0.9% 1,000 ML IV SCH ×3 (00:06→20:54)
[2020-05-03 04:09] LABS: Hematocrit 38.9 VOL% (42.0-52.0); Hemoglobin 12.8 GM/DL (14.0-18.0); Immature Granulocytes % 0.4 %; Immature Granulocytes Absolute 0.01 #; Lymphocytes # 0.3 10*3/uL (1.4-4.0); Mean Corpuscular HGB Conc 32.9 GM/DL (32-36); Mean Corpuscular Volume 94.9 FL (87-102); Mean Platelet Volume 9.8 FL (9.6-12.0); Monocytes % 7.2 % (1.7-12.7); Neutrophils % 81.4 % (38.7-73.9); Platelet Count 144 T/CUMM (130-400); Red Cell Distribution Width 12.4 % (9.3-17.3); White Blood Count 2.4 T/CUMM (4-12)
[2020-05-03 04:47] LABS: Albumin 2.7 G/DL (3.4-5.0); Bilirubin,Total 0.7 MG/DL (0.2-1.0); Calcium 7.9 MG/DL (8.5-10.1); Osmolality,Calculated 286.8 MOS/KG (273-304); Thyroid Stimulating Hormone 2.58 uIU/ml (0.358-3.74); Total Protein 6.2 G/DL (6.4-8.3)
[2020-05-03] MEDS: LEVOTHYROXINE 112 MCG TABLET PO SCH (06:00)
[2020-05-03] MEDS: DEXAMETHASONE 4 MG/1 ML VIAL IV SCH (09:30)
[2020-05-03] MEDS: CHOLECALCIFEROL 1,000 UNIT TABLET PO SCH (09:30)
[2020-05-03] MEDS: ZINC GLUCONATE 50 MG TABLET PO SCH (09:30)
[2020-05-03] MEDS: PANTOPRAZOLE 40 MG TABLET PO SCH (09:30)
[2020-05-03] MEDS: CETIRIZINE 10 MG TABLET PO SCH (09:30)
[2020-05-03] MEDS: AZITHROMYCIN 250 MG TABLET PO SCH (09:30)
[2020-05-03] MEDS: LIDOCAINE 5% PATCH TRANSDERM SCH (09:30)
[2020-05-03] MEDS: ENOXAPARIN 40 MG/0.4 ML SYRINGE SUBCUT SCH (09:30)
[2020-05-03] MEDS: GABAPENTIN 300 MG CAPSULE PO SCH (09:30)
[2020-05-03] MEDS: POLYETHYLENE GLYCOL POWDER 17 GM PACK PO SCH (09:30)
[2020-05-03] MEDS: ASCORBIC ACID 500 MG TABLET PO SCH ×2 (09:30→20:55)
[2020-05-03] MEDS: THIAMINE 100 MG TABLET PO SCH (09:30)
[2020-05-03] MEDS: CYCLOBENZAPRINE 10 MG TABLET PO SCH ×3 (09:30→20:55)
[2020-05-03] MEDS: REMDESIVIR 100 MG in SODIUM CHLORIDE 0.9% 100 ML IV SCH (09:33)
[2020-05-03 10:49] LABS: Amorphous Crystals,Urine Few /HPF (Few); Bilirubin,Urine Negative (Negative); Blood, Urine Negative (Negative); Glucose,Urine (UA) Negative (Negative); Hyaline Casts,Urine 4 /LPF (0-3); Ketones,Urine Negative (Negative); Mucus,Urine Occasional /LPF (Occasional); Nitrite,Urine Negative (Negative); Protein,Urine 100 MG/DL; RBC,Urine 1 /HPF (0-4); Urine Appearance Slightly Hazy (Clear); Urine Color Yellow (Yellow); Urine Specific Gravity 1.024 (1.001-1.035); Urine Urobilinogen < 2.0 EU/DL (0.2-1.0); WBC,Urine 1 /HPF (0-6)
[2020-05-03 11:17] LABS: Barbiturates Screen,Urine Negative (Negative); Benzodiazepines Screen,Urine Negative (Negative); Cannabinoid Screen,Urine Negative (Negative); Opiate Screen,Urine Positive (Negative); Phencyclidine Screen,Urine Negative (Negative)
[2020-05-03] MEDS: cefTRIAXone 1,000 MG in SYRINGE 1 EACH IV SCH (14:30)
[2020-05-03] MEDS: traZODone 50 MG TABLET PO SCH (20:55)
[2020-05-03] MEDS: ATORVASTATIN 40 MG TABLET PO SCH (20:55)
[2020-05-04] MEDS: SODIUM CHLORIDE 0.9% 1,000 ML IV SCH ×3 (01:58→20:56)
[2020-05-04] MEDS: LEVOTHYROXINE 112 MCG TABLET PO SCH (06:00)
[2020-05-04 06:30] LABS: Hematocrit 37.6 VOL% (42.0-52.0); Hemoglobin 11.9 GM/DL (14.0-18.0); Immature Granulocytes % 0.8 %; Immature Granulocytes Absolute 0.04 #; Lymphocytes # 0.3 10*3/uL (1.4-4.0); Lymphocytes % 6.7 % (21.2-54.2); Mean Corpuscular HGB Conc 31.6 GM/DL (32-36); Mean Corpuscular Volume 97.2 FL (87-102); Mean Platelet Volume 10.5 FL (9.6-12.0); Monocytes % 6.5 % (1.7-12.7); Platelet Count 140 T/CUMM (130-400); Red Blood Count 3.87 MC/CUMM (3.8-5.5); Red Cell Distribution Width 12.4 % (9.3-17.3); White Blood Count 4.9 T/CUMM (4-12)
[2020-05-04 07:23] LABS: Alanine Aminotransferase 18 U/L (16-61); Albumin 2.6 G/DL (3.4-5.0); Alkaline Phosphatase 52 U/L (45-117); Aspartate Amino Transferase 29 U/L (0-37); Bilirubin,Total < 0.39 MG/DL (0.2-1.0); Blood Urea Nitrogen 43 MG/DL (7-18); Estimated Glom Filtration Rate 41 ML/MIN; Ferritin 673.7 ng/ml (26-388); Glucose 118 MG/DL (74-106); Osmolality,Calculated 290.4 MOS/KG (273-304); Total Protein 5.5 G/DL (6.4-8.3)
[2020-05-04] MEDS: ENOXAPARIN 40 MG/0.4 ML SYRINGE SUBCUT SCH (09:02)
[2020-05-04] MEDS: PANTOPRAZOLE 40 MG TABLET PO SCH (09:02)
[2020-05-04] MEDS: AZITHROMYCIN 250 MG TABLET PO SCH (09:02)
[2020-05-04] MEDS: POLYETHYLENE GLYCOL POWDER 17 GM PACK PO SCH (09:02)
[2020-05-04] MEDS: ASCORBIC ACID 500 MG TABLET PO SCH ×2 (09:02→20:45)
[2020-05-04] MEDS: THIAMINE 100 MG TABLET PO SCH (09:02)
[2020-05-04] MEDS: GABAPENTIN 300 MG CAPSULE PO SCH (09:02)
[2020-05-04] MEDS: CETIRIZINE 10 MG TABLET PO SCH (09:02)
[2020-05-04] MEDS: CHOLECALCIFEROL 1,000 UNIT TABLET PO SCH (09:02)
[2020-05-04] MEDS: CYCLOBENZAPRINE 10 MG TABLET PO SCH ×3 (09:02→20:45)
[2020-05-04] MEDS: LIDOCAINE 5% PATCH TRANSDERM SCH (09:02)
[2020-05-04] MEDS: ZINC GLUCONATE 50 MG TABLET PO SCH (09:02)
[2020-05-04] MEDS: DEXAMETHASONE 4 MG/1 ML VIAL IV SCH (09:02)
[2020-05-04] MEDS: REMDESIVIR 100 MG in SODIUM CHLORIDE 0.9% 100 ML IV SCH (09:05)
[2020-05-04] MEDS: cefTRIAXone 1,000 MG in SYRINGE 1 EACH IV SCH (15:20)
[2020-05-04] MEDS: traZODone 50 MG TABLET PO SCH (20:45)
[2020-05-04] MEDS: ATORVASTATIN 40 MG TABLET PO SCH (20:45)
[2020-05-05 05:41] LABS: Hematocrit 37.9 VOL% (42.0-52.0); Hemoglobin 12.2 GM/DL (14.0-18.0); Immature Granulocytes % 1.4 %; Immature Granulocytes Absolute 0.09 #; Lymphocytes # 0.3 10*3/uL (1.4-4.0); Lymphocytes % 4.4 % (21.2-54.2); Mean Corpuscular HGB Conc 32.2 GM/DL (32-36); Mean Corpuscular Volume 97.2 FL (87-102); Mean Platelet Volume 10.1 FL (9.6-12.0); Monocytes % 6.4 % (1.7-12.7); Neutrophils % 87.8 % (38.7-73.9); Platelet Count 170 T/CUMM (130-400); Red Cell Distribution Width 12.6 % (9.3-17.3); White Blood Count 6.5 T/CUMM (4-12)
[2020-05-05 06:02] LABS: Alanine Aminotransferase 35 U/L (16-61); Albumin 2.7 G/DL (3.4-5.0); Alkaline Phosphatase 58 U/L (45-117); Aspartate Amino Transferase 51 U/L (0-37); Bilirubin,Total < 0.39 MG/DL (0.2-1.0); Blood Urea Nitrogen 45 MG/DL (7-18); Calcium 8.2 MG/DL (8.5-10.1); Estimated Glom Filtration Rate 41 ML/MIN; Glucose 96 MG/DL (74-106); Osmolality,Calculated 299.7 MOS/KG (273-304)
[2020-05-05 06:05] LABS: Hypochromasia 1+; Lymphocytes 7 % (20-55); Microcytosis 1+; Ovalocytes Slight; Platelet Estimate Adequate; Segmented Neutrophils 90 % (50-85); Total Cells Counted 100
[2020-05-05] MEDS: LEVOTHYROXINE 112 MCG TABLET PO SCH (06:20)
[2020-05-05] MEDS: CHOLECALCIFEROL 1,000 UNIT TABLET PO SCH (08:29)
[2020-05-05] MEDS: ASCORBIC ACID 500 MG TABLET PO SCH ×2 (08:30→20:26)
[2020-05-05] MEDS: CYCLOBENZAPRINE 10 MG TABLET PO SCH ×3 (08:30→20:26)
[2020-05-05] MEDS: ZINC GLUCONATE 50 MG TABLET PO SCH (08:30)
[2020-05-05] MEDS: AZITHROMYCIN 250 MG TABLET PO SCH (08:30)
[2020-05-05] MEDS: DEXAMETHASONE 4 MG/1 ML VIAL IV SCH (08:30)
[2020-05-05] MEDS: CETIRIZINE 10 MG TABLET PO SCH (08:30)
[2020-05-05] MEDS: PANTOPRAZOLE 40 MG TABLET PO SCH (08:30)
[2020-05-05] MEDS: THIAMINE 100 MG TABLET PO SCH (08:30)
[2020-05-05] MEDS: fentaNYL 25 MCG/HR PATCH TRANSDERM SCH (08:33)
[2020-05-05] MEDS: GABAPENTIN 300 MG CAPSULE PO SCH (08:33)
[2020-05-05] MEDS: POLYETHYLENE GLYCOL POWDER 17 GM PACK PO SCH (08:34)
[2020-05-05] MEDS: LIDOCAINE 5% PATCH TRANSDERM SCH (08:34)
[2020-05-05] MEDS: ENOXAPARIN 40 MG/0.4 ML SYRINGE SUBCUT SCH (08:34)
[2020-05-05] MEDS: REMDESIVIR 100 MG in SODIUM CHLORIDE 0.9% 100 ML IV SCH (10:10)
[2020-05-05] MEDS: SODIUM CHLORIDE 0.9% 1,000 ML IV SCH (11:14)
[2020-05-05] MEDS: cefTRIAXone 1,000 MG in SYRINGE 1 EACH IV SCH (15:25)
[2020-05-05] MEDS: ATORVASTATIN 40 MG TABLET PO SCH (20:26)
[2020-05-05] MEDS: traZODone 50 MG TABLET PO SCH (20:26)
[2020-05-06 04:01] LABS: ABG HCO3 24.9 MMOL/L (20-26); ABG Oxygen Saturation 90.3 % (95-100); ABG PCO2 37.1 MM HG (35-48); ABG PH 7.444 (7.35-7.45); ABG PO2 58.1 MM HG (80-95)
[2020-05-06 06:04] LABS: Basophils % 0.2 % (0.0-0.8); Hematocrit 39.2 VOL% (42.0-52.0); Hemoglobin 12.6 GM/DL (14.0-18.0); Immature Granulocytes % 0.9 %; Immature Granulocytes Absolute 0.06 #; Lymphocytes # 0.3 10*3/uL (1.4-4.0); Lymphocytes % 4.1 % (21.2-54.2); Mean Corpuscular HGB Conc 32.1 GM/DL (32-36); Mean Corpuscular Volume 95.6 FL (87-102); Monocytes % 5.9 % (1.7-12.7); Neutrophils % 88.9 % (38.7-73.9); Platelet Count 168 T/CUMM (130-400); Red Cell Distribution Width 12.8 % (9.3-17.3); White Blood Count 6.4 T/CUMM (4-12)
[2020-05-06] MEDS: LEVOTHYROXINE 112 MCG TABLET PO SCH (06:23)
[2020-05-06 06:26] LABS: Bilirubin,Total 0.9 MG/DL (0.2-1.0); Calcium 8.6 MG/DL (8.5-10.1); Osmolality,Calculated 292.1 MOS/KG (273-304); Total Protein 6.1 G/DL (6.4-8.3)
[2020-05-06 06:30] LABS: Anisocytosis 1+; Band Neutrophils 1 % (0-10); Lymphocytes 3 % (20-55); Macrocytosis Slight; Nucleated Red Blood Cells 1 (0-5); Platelet Estimate Normal; Segmented Neutrophils 88 % (50-85); Total Cells Counted 100
[2020-05-06] MEDS: ENOXAPARIN 40 MG/0.4 ML SYRINGE SUBCUT SCH (08:24)
[2020-05-06] MEDS: CYCLOBENZAPRINE 10 MG TABLET PO SCH ×3 (08:25→20:30)
[2020-05-06] MEDS: AZITHROMYCIN 250 MG TABLET PO SCH (08:25)
[2020-05-06] MEDS: PANTOPRAZOLE 40 MG TABLET PO SCH (08:25)
[2020-05-06] MEDS: THIAMINE 100 MG TABLET PO SCH (08:25)
[2020-05-06] MEDS: ASCORBIC ACID 500 MG TABLET PO SCH ×2 (08:25→20:30)
[2020-05-06] MEDS: CHOLECALCIFEROL 1,000 UNIT TABLET PO SCH (08:25)
[2020-05-06] MEDS: ZINC GLUCONATE 50 MG TABLET PO SCH (08:25)
[2020-05-06] MEDS: CETIRIZINE 10 MG TABLET PO SCH (08:25)
[2020-05-06] MEDS: GABAPENTIN 300 MG CAPSULE PO SCH (08:25)
[2020-05-06] MEDS: DEXAMETHASONE 4 MG/1 ML VIAL IV SCH (08:26)
[2020-05-06] MEDS: LIDOCAINE 5% PATCH TRANSDERM SCH (08:27)
[2020-05-06] MEDS: POLYETHYLENE GLYCOL POWDER 17 GM PACK PO SCH (08:28)
[2020-05-06] MEDS: REMDESIVIR 100 MG in SODIUM CHLORIDE 0.9% 100 ML IV SCH (08:28)
[2020-05-06] MEDS: cefTRIAXone 1,000 MG in SYRINGE 1 EACH IV SCH (14:08)
[2020-05-06] MEDS: traZODone 50 MG TABLET PO SCH (20:30)
[2020-05-06] MEDS: ATORVASTATIN 40 MG TABLET PO SCH (20:31)
[2020-05-07] MEDS ORDERED: MORPHINE 4 MG/1 ML VIAL IV ONE (02:41)
[2020-05-07] MEDS: LEVOTHYROXINE 112 MCG TABLET PO SCH (06:00)
[2020-05-07] MEDS: DEXAMETHASONE 4 MG/1 ML VIAL IV SCH (08:44)
[2020-05-07] MEDS: ENOXAPARIN 40 MG/0.4 ML SYRINGE SUBCUT SCH (08:46)
[2020-05-07] MEDS: CETIRIZINE 10 MG TABLET PO SCH (08:47)
[2020-05-07] MEDS: CYCLOBENZAPRINE 10 MG TABLET PO SCH ×3 (08:47→22:08)
[2020-05-07] MEDS: ASCORBIC ACID 500 MG TABLET PO SCH ×2 (08:47→22:08)
[2020-05-07] MEDS: POLYETHYLENE GLYCOL POWDER 17 GM PACK PO SCH (08:47)
[2020-05-07] MEDS: CHOLECALCIFEROL 1,000 UNIT TABLET PO SCH (08:47)
[2020-05-07] MEDS: GABAPENTIN 300 MG CAPSULE PO SCH (08:49)
[2020-05-07] MEDS: ZINC GLUCONATE 50 MG TABLET PO SCH (08:49)
[2020-05-07] MEDS: LIDOCAINE 5% PATCH TRANSDERM SCH (08:49)
[2020-05-07] MEDS: THIAMINE 100 MG TABLET PO SCH (08:49)
[2020-05-07] MEDS: PANTOPRAZOLE 40 MG TABLET PO SCH (08:49)
[2020-05-07] MEDS: cefTRIAXone 1,000 MG in SYRINGE 1 EACH IV SCH (14:51)
[2020-05-07] MEDS: ATORVASTATIN 40 MG TABLET PO SCH (22:08)
[2020-05-07] MEDS: traZODone 50 MG TABLET PO SCH (22:08)
[2020-05-08 05:08] LABS: ABG Base Excess 1.8 MMOL/L (-2.5-2.5); ABG HCO3 26.5 MMOL/L (20-26); ABG Oxygen Saturation 98.3 % (95-100); ABG PH 7.418 (7.35-7.45); ABG PO2 135.5 MM HG (80-95); ABG TCO2 27.8 MMOL/L (23-27)
[2020-05-08] MEDS: LEVOTHYROXINE 112 MCG TABLET PO SCH (06:06)
[2020-05-08] MEDS: PANTOPRAZOLE 40 MG TABLET PO SCH (09:14)
[2020-05-08] MEDS: THIAMINE 100 MG TABLET PO SCH (09:14)
[2020-05-08] MEDS: fentaNYL 25 MCG/HR PATCH TRANSDERM SCH (09:14)
[2020-05-08] MEDS: ASCORBIC ACID 500 MG TABLET PO SCH ×2 (09:14→21:25)
[2020-05-08] MEDS: CHOLECALCIFEROL 1,000 UNIT TABLET PO SCH (09:15)
[2020-05-08] MEDS: GABAPENTIN 300 MG CAPSULE PO SCH (09:15)
[2020-05-08] MEDS: ENOXAPARIN 40 MG/0.4 ML SYRINGE SUBCUT SCH (09:15)
[2020-05-08] MEDS: ZINC GLUCONATE 50 MG TABLET PO SCH (09:15)
[2020-05-08] MEDS: DEXAMETHASONE 4 MG/1 ML VIAL IV SCH (09:16)
[2020-05-08] MEDS: CYCLOBENZAPRINE 10 MG TABLET PO SCH ×3 (09:29→21:25)
[2020-05-08] MEDS: POLYETHYLENE GLYCOL POWDER 17 GM PACK PO SCH (09:29)
[2020-05-08] MEDS: CETIRIZINE 10 MG TABLET PO SCH (09:29)
[2020-05-08] MEDS: LIDOCAINE 5% PATCH TRANSDERM SCH (10:36)
[2020-05-08] MEDS: cefTRIAXone 1,000 MG in SYRINGE 1 EACH IV SCH (14:52)
[2020-05-08] MEDS: ATORVASTATIN 40 MG TABLET PO SCH (21:25)
[2020-05-08] MEDS: traZODone 50 MG TABLET PO SCH (21:25)
[2020-05-09] MEDS: LEVOTHYROXINE 112 MCG TABLET PO SCH (06:11)
[2020-05-09] MEDS: ENOXAPARIN 40 MG/0.4 ML SYRINGE SUBCUT SCH (09:07)
[2020-05-09] MEDS: POLYETHYLENE GLYCOL POWDER 17 GM PACK PO SCH (09:07)
[2020-05-09] MEDS: LIDOCAINE 5% PATCH TRANSDERM SCH (09:07)
[2020-05-09] MEDS: ASCORBIC ACID 500 MG TABLET PO SCH ×2 (09:08→21:01)
[2020-05-09] MEDS: DEXAMETHASONE 4 MG/1 ML VIAL IV SCH (09:08)
[2020-05-09] MEDS: CYCLOBENZAPRINE 10 MG TABLET PO SCH ×3 (09:08→21:01)
[2020-05-09] MEDS: CETIRIZINE 10 MG TABLET PO SCH (09:08)
[2020-05-09] MEDS: GABAPENTIN 300 MG CAPSULE PO SCH (09:09)
[2020-05-09] MEDS: CHOLECALCIFEROL 1,000 UNIT TABLET PO SCH (09:09)
[2020-05-09] MEDS: THIAMINE 100 MG TABLET PO SCH (09:09)
[2020-05-09] MEDS: PANTOPRAZOLE 40 MG TABLET PO SCH (09:09)
[2020-05-09] MEDS: ZINC GLUCONATE 50 MG TABLET PO SCH (09:09)
[2020-05-09 09:48] LABS: ABG Base Excess 2.2 MMOL/L (-2.5-2.5); ABG HCO3 25.9 MMOL/L (20-26); ABG Oxygen Saturation 92.6 % (95-100); ABG PCO2 37.2 MM HG (35-48); ABG PH 7.461 (7.35-7.45); ABG PO2 66.6 MM HG (80-95); ABG TCO2 27.1 MMOL/L (23-27)
[2020-05-09] MEDS: cefTRIAXone 1,000 MG in SYRINGE 1 EACH IV SCH (13:44)
[2020-05-09] MEDS: traZODone 50 MG TABLET PO SCH (21:01)
[2020-05-09] MEDS: ATORVASTATIN 40 MG TABLET PO SCH (21:01)
[2020-05-10] MEDS: LEVOTHYROXINE 112 MCG TABLET PO SCH (06:17)
[2020-05-10] MEDS: POLYETHYLENE GLYCOL POWDER 17 GM PACK PO SCH (08:16)
[2020-05-10] MEDS: LIDOCAINE 5% PATCH TRANSDERM SCH (08:16)
[2020-05-10] MEDS: ENOXAPARIN 40 MG/0.4 ML SYRINGE SUBCUT SCH (08:16)
[2020-05-10] MEDS: CETIRIZINE 10 MG TABLET PO SCH (08:17)
[2020-05-10] MEDS: ASCORBIC ACID 500 MG TABLET PO SCH (08:17)
[2020-05-10] MEDS: PANTOPRAZOLE 40 MG TABLET PO SCH (08:18)
[2020-05-10] MEDS: ZINC GLUCONATE 50 MG TABLET PO SCH (08:18)
[2020-05-10] MEDS: CHOLECALCIFEROL 1,000 UNIT TABLET PO SCH (08:18)
[2020-05-10] MEDS: GABAPENTIN 300 MG CAPSULE PO SCH (08:18)
[2020-05-10] MEDS: CYCLOBENZAPRINE 10 MG TABLET PO SCH (08:18)
[2020-05-10] MEDS: THIAMINE 100 MG TABLET PO SCH (08:18)
[2020-05-10] MEDS: DEXAMETHASONE 4 MG/1 ML VIAL IV SCH (09:12)
[2020-05-10] MEDS ORDERED: DEXAMETHASONE 4 MG TABLET PO ONE (11:00)
[2020-05-10] MEDS ORDERED: amLODIPine 5 MG TABLET PO ONE (11:16)
[2020-05-10 12:05] VITALS: BP 166/86
[2020-05-10] MEDS: cefTRIAXone 1,000 MG in SYRINGE 1 EACH IV SCH (13:40)
[2020-05-11] MEDS ORDERED: amLODIPine 2.5 MG TABLET PO SCH (09:00)
== END 2020-05-10 14:10 | disposition home or self-care (01) | DRG 177 ==
LOC: EDUNIT# → N.ED 05:54 → SUATTDRO 08:25 → N.EDINP 08:25 → N.2E 10:31
PROVIDERS: ADMIT Internal Medicine; ATTEND Internal Medicine